=== PATIENT | female | born 1990 | race Caucasian/White ===

== ENCOUNTER → 2018-04-06 15:42 | Outpatient (CLI) | payer OTHER, SELFPAY ==
[2018-04-06 17:06] LABS: HCG Quantitative /Beta subunit < 2.39 mIU/mL
== END ==
PROVIDERS: Visit Provider Specialist
DX: N92.6 Irregular menstruation, unspecified (principal)
CPT/HCPCS: 36415; 84702

== ENCOUNTER → 2019-03-06 12:42 | Outpatient (CLI) | payer OTHER, SELFPAY | PROVIDERS: PCP Family Medicine; Visit Provider Family Medicine | DX: N90.89 Other specified noninflammatory disorders of vulva and perineum (principal) | CPT/HCPCS: 87255 ==

== ENCOUNTER → 2019-11-30 15:56 | Outpatient (CLI) | payer OTHER, SELFPAY ==
[2019-11-30 16:29] LABS: Add Manual Diff / Slide Review NO; Basophils Absolute Auto 100 /uL (0-100); Basophils Percent Auto 0.9 % (0-2); Eosinophils Absolute Auto 300 /uL (0-450); Eosinophils Percent Auto 3.4 % (2-4); Hemoglobin 13.8 g/dL (12.0-16.0); Lymphocytes Absolute Auto 2900 /uL (1100-4500); Lymphocytes Percent Auto 37.7 % (25-40); Mean Corpuscular HGB Conc 33.8 % (30-36); Mean Corpuscular Hemoglobin 31.1 PG (26-34); Mean Corpuscular Volume 92.1 fL (80-100); Monocytes Absolute Auto 600 /uL (0-900); Monocytes Percent Auto 7.3 % (3-14); Neutrophils Absolute Auto 3800 /uL (1500-7000); Neutrophils Percent Auto 50.7 % (50-75); Platelet Count 244 X10^3/uL (150-400); Red Blood Cell Count 4.45 X10^6/uL (4.0-5.2); Red Cell Distribution Width 12.8 % (11.6-14.8); White Blood Cell Count 7.6 X10^3/uL (4.5-11.0)
[2019-11-30 16:43] LABS: HEMOLYSIS < 15 (0-50); Iron 95 ug/dL (37-170)
[2019-11-30 16:44] LABS: Alanine Aminotransferase 25 IU/L (<35); Albumin 4.6 g/dL (3.5-5.0); Albumin Globulin Ratio 1.5 (1.0-2.8); Alkaline Phosphatase 46 U/L (38-126); Aspartate Aminotransferase 34 IU/L (14-36); BUN Creatinine Ratio 20.5 (6-22); Bilirubin Total 0.5 mg/dL (0.2-1.3); Blood Urea Nitrogen 16 mg/dL (7-17); Calcium 9.8 mg/dL (8.4-10.2); Carbon Dioxide 28 mmol/L (22-32); Chloride 104 mmol/L (98-107); Estimated Glomerular Filt Rate > 60.0 mL/min (>60); Glucose 91 mg/dL (70-100); HEMOLYSIS < 15 (0-50); Potassium 5.2 mmol/L (3.4-5.1); Sodium 140 mmol/L (137-145); Total Protein 7.6 g/dL (6.3-8.2)
[2019-11-30 16:54] LABS: Percent Iron Saturation 29 % (15-50); Total Iron Binding Capacity 331 ug/dL (265-497); Transferrin 273 mg/dL (206-381)
[2019-11-30 17:15] LABS: TSH w/ Reflex to FT4 2.12 uIU/mL (0.47-4.68)
[2019-11-30 17:20] LABS: Ferritin 25 ng/mL (6-137)
== END ==
PROVIDERS: PCP Family Medicine; Referring Provider Family Medicine; Visit Provider Family Medicine
DX: N92.0 Excessive and frequent menstruation with regular cycle (principal); D50.9 Iron deficiency anemia, unspecified
CPT/HCPCS: 36415; 80053; 82728; 83540; 83550; 84443; 85025

== ENCOUNTER → 2020-08-22 10:50 | Outpatient (CLI) | payer OTHER, SELFPAY ==
[2020-08-22 13:00] LABS: TSH w/ Reflex to FT4 1.34 uIU/mL (0.47-4.68)
== END ==
PROVIDERS: PCP Family Medicine; Referring Provider Family Medicine; Visit Provider Family Medicine
DX: N97.9 Female infertility, unspecified (principal)
CPT/HCPCS: 36415; 84443

== ENCOUNTER → 2020-09-19 16:15 | Outpatient (CLI) | payer OTHER, SELFPAY | PROVIDERS: PCP Family Medicine; Referring Provider Obstetrics & Gynecology; Visit Provider Obstetrics & Gynecology | DX: Z31.69 Encounter for other general counseling and advice on procreation (principal) | CPT/HCPCS: 36415; 86762; 86777 ==

== ENCOUNTER → 2021-05-04 14:58 | Outpatient (CLI) | payer OTHER, SELFPAY ==
--- NOTE | 2021-05-04 14:59 | DI.US.S_ITS ---
PROCEDURE: US PELVIC COMPLETE INDICATIONS: Abnormal and heavy vaginal bleeding TECHNIQUE: Real-time scanning was performed of the pelvic organs, with image documentation. Additional endovaginal scanning was necessary due to incomplete visualization of the adnexal and endometrial structures by transabdominal scanning. COMPARISON: None. FINDINGS: Uterus: Uterus is anteverted and normal in size at 10.0 x 3.7 x 5.4 cm. The myometrium is homogeneous. The endometrium measures 11.4 mm combined thickness Ovaries: The right ovary measures 2.8 x 1.6 x 1.8 cm. The left ovary measures 3.5 x 2.2 x 2.1 cm. The ovaries have a normal sonographic appearance. Less than 12 follicles can be seen in each ovary. No adnexal masses are seen. There is a dominant left ovarian follicle measuring 2.1 cm in maximum diameter. Other: No pathologic free abdominal or pelvic fluid. IMPRESSION: Unremarkable pelvic ultrasound. We strive to produce accurate, complete, and clear reports of imaging services. To assist us in improving patient care, this report was composed using standard report templates and voice recognition software. Therefore, it may contain abnormal punctuation, insertions and/or omissions. Occasional wrong-word or sound-alike substitutions may occur. Though we review the report and make efforts to correct it, we do recommend that the report be read carefully in proper context to recognize any text inaccuracies. Dictated by: Farhan Nash M.D. on 05/04/2021 at 16:10 Approved by: Farhan Nash M.D. on 05/04/2021 at 16:14
== END ==
PROVIDERS: PCP Family Medicine; Referring Provider Obstetrics & Gynecology; Visit Provider Obstetrics & Gynecology
DX: N92.0 Excessive and frequent menstruation with regular cycle (principal); N93.9 Abnormal uterine and vaginal bleeding, unspecified
CPT/HCPCS: 76830; 76856

== ENCOUNTER → 2021-11-27 13:38 | Outpatient (CLI) | payer OTHER, SELFPAY ==
[2021-11-27 14:57] LABS: Semen 30 min. Liquification? Yes
[2021-11-27 14:59] LABS: Final Volume 0.5 mL; Initial Volume 4 mL
== END ==
PROVIDERS: PCP Family Medicine; Referring Provider Obstetrics & Gynecology; Visit Provider Obstetrics & Gynecology
DX: Z31.9 Encounter for procreative management, unspecified (principal)
CPT/HCPCS: 58323

== ENCOUNTER → 2021-12-25 13:27 | Outpatient (CLI) | payer OTHER, SELFPAY ==
[2021-12-25 14:01] LABS: Semen 30 min. Liquification? Yes
[2021-12-25 14:50] LABS: Final Volume 0.5 mL
== END ==
PROVIDERS: PCP Family Medicine; Referring Provider Obstetrics & Gynecology; Visit Provider Obstetrics & Gynecology
DX: N97.9 Female infertility, unspecified (principal)
CPT/HCPCS: 58323

== ENCOUNTER → 2022-01-20 13:18 | Outpatient (CLI) | payer OTHER, SELFPAY ==
[2022-01-20 15:00] LABS: Final Volume 0.5 mL; Initial Volume 3.5 mL; Semen 30 min. Liquification? Yes
== END ==
PROVIDERS: PCP Family Medicine; Referring Provider Obstetrics & Gynecology; Visit Provider Obstetrics & Gynecology
DX: Z34.81 Encounter for supervision of other normal pregnancy, first trimester (principal); N97.8 Female infertility of other origin
CPT/HCPCS: 58323

== ENCOUNTER → 2022-02-25 12:50 | Outpatient (CLI) | payer OTHER, SELFPAY ==
--- NOTE | 2022-02-25 12:51 | DI.RAD.S_ITS ---
PROCEDURE: HL HYSTEROSAPINGOGRAPHY INDICATIONS: Female infertility COMPARISON: None. FINDINGS: Hysterosalpingogram was performed in conjunction with gynecology. The catheter was placed by the burn out tender lace who also injected contrast into the endometrial canal. Uterus: The uterine cavity appears normal in size and morphology, without synechiae or masses. Fallopian tubes: Both fallopian tubes fill with contrast, and appear normal in caliber and morphology. There is ready dispersion of contrast into the peritoneal cavity. IMPRESSION: Negative hysterosalpingogram. Please see separate gynecology report for further details. Dictated by: Jones Chavez M.D. on 02/25/2022 at 17:48 Approved by: Jones Chavez M.D. on 02/25/2022 at 17:50
--- NOTE | 2022-02-25 19:37 | PM.PROC.1 ---
Procedures Date/Time Date of procedure: 02/25/22 Time of procedure: 13:20 General Procedure description: Hysterosalpingogram Informed consent was obtained. The patient was placed on the fluoroscopy table with pelvis on an overturned bedpan. A bivalve speculum was placed in the vaginal. The cervix was cleaned x 3 with Betadine. A single-tooth tenaculum was placed on the anterior lip of the cervix. The HSG catheter passed easily into the the uterus. The bulb was inflated with 3cc of air. The bivalve speculum was removed from the vagina. 20cc of Isoview 300 were injected thru the HSG catheter under direct fluoroscopic observation. The contours of the uterus were normal. There was spill from both tubes. The HSG catheter was deflated and removed from the uterus. The patient tolerated the procedure well. Complications: none
== END ==
PROVIDERS: PCP Family Medicine; Referring Provider Obstetrics & Gynecology; Visit Provider Obstetrics & Gynecology
DX: Z31.9 Encounter for procreative management, unspecified (principal); N97.9 Female infertility, unspecified
CPT/HCPCS: 58340; 74740

== ENCOUNTER → 2022-03-22 15:13 | Outpatient (CLI) | payer OTHER, SELFPAY ==
[2022-03-22 16:57] LABS: HCG Quantitative /Beta subunit 41.4 mIU/mL
== END ==
PROVIDERS: PCP Family Medicine; Referring Provider Obstetrics & Gynecology; Visit Provider Obstetrics & Gynecology
DX: Z34.90 Encounter for supervision of normal pregnancy, unspecified, unspecified trimester (principal)
CPT/HCPCS: 36415; 84702

== ENCOUNTER → 2022-03-24 15:17 | Outpatient (CLI) | payer OTHER, SELFPAY ==
[2022-03-24 16:11] LABS: HCG Quantitative /Beta subunit 40.1 mIU/mL
== END ==
PROVIDERS: PCP Family Medicine; Referring Provider Obstetrics & Gynecology; Visit Provider Obstetrics & Gynecology
DX: Z34.90 Encounter for supervision of normal pregnancy, unspecified, unspecified trimester (principal)
CPT/HCPCS: 36415; 84702

== ENCOUNTER → 2022-03-26 15:17 | Outpatient (CLI) | payer OTHER, SELFPAY ==
[2022-03-26 16:39] LABS: HCG Quantitative /Beta subunit 37.6 mIU/mL
== END ==
PROVIDERS: PCP Family Medicine; Referring Provider Obstetrics & Gynecology; Visit Provider Obstetrics & Gynecology
DX: Z34.90 Encounter for supervision of normal pregnancy, unspecified, unspecified trimester (principal)
CPT/HCPCS: 36415; 84702

== ENCOUNTER → 2023-03-02 15:35 | Outpatient (CLI) | payer OTHER, SELFPAY ==
[2023-03-02 16:31] LABS: Add Manual Diff / Slide Review NO; Basophils Absolute Auto 0 /uL (0-100); Basophils Percent Auto 0.5 % (0-2); Eosinophils Absolute Auto 100 /uL (0-450); Eosinophils Percent Auto 1.8 % (2-4); Hematocrit 38.8 % (36-46); Hemoglobin 13.3 g/dL (12.0-16.0); Lymphocytes Absolute Auto 2300 /uL (1100-4500); Lymphocytes Percent Auto 30.6 % (25-40); Mean Corpuscular HGB Conc 34.2 % (30-36); Mean Corpuscular Hemoglobin 30.6 PG (26-34); Mean Corpuscular Volume 89.5 fL (80-100); Monocytes Absolute Auto 500 /uL (0-900); Monocytes Percent Auto 6.3 % (3-14); Neutrophils Absolute Auto 4500 /uL (1500-7000); Neutrophils Percent Auto 60.8 % (50-75); Platelet Count 300 X10^3/uL (150-400); Red Blood Cell Count 4.33 X10^6/uL (4.0-5.2); Red Cell Distribution Width 12.7 % (11.6-14.8); White Blood Cell Count 7.5 X10^3/uL (4.5-11.0)
[2023-03-03 05:17] LABS: RPR Screen Non Reactive (Non Reactive)
[2023-03-03 08:36] LABS: Varicella IgG Antibody 836 index (Immune >165)
[2023-03-03 20:13] LABS: HIV 1 & 2 Ab/Ag 4th Gen Combo NEGATIVE (NEGATIVE); Hepatitis B Surface Antigen NEGATIVE s/c (NEGATIVE); Rubella Antibody IgG 96.5 IU/mL (>15)
[2023-03-04 18:17] LABS: Hep C Virus Ab w/Reflex Quant NEGATIVE s/c (NEGATIVE)
== END ==
PROVIDERS: PCP Obstetrics & Gynecology; Referring Provider Student in an Organized Health Care Education/Training Program; Visit Provider Student in an Organized Health Care Education/Training Program
DX: O09.819 Supervision of pregnancy resulting from assisted reproductive technology, unspecified trimester (principal)
CPT/HCPCS: 36415; 80055; 86787; 86803; 86850; 86900; 86901; 87086; 87389

== ENCOUNTER → 2023-04-19 16:21 | Outpatient (CLI) | payer OTHER, SELFPAY ==
[2023-04-22 21:54] LABS: AFP Value 23.9 ng/mL (.); Gest Age on Col Date 18.6 weeks (.); Insulin Dep Diabetes No (.); OSBR Risk 1IN 10000 (.); Results Report (.); Test Results *Screen Negative* (.)
== END ==
PROVIDERS: PCP Family Medicine; Referring Provider Obstetrics & Gynecology; Visit Provider Obstetrics & Gynecology
DX: Z34.02 Encounter for supervision of normal first pregnancy, second trimester (principal); Z3A.16 16 weeks gestation of pregnancy
CPT/HCPCS: 36415; 82105

== ENCOUNTER → 2023-05-12 16:14 | Outpatient (CLI) | payer OTHER, SELFPAY ==
--- NOTE | 2023-05-12 16:16 | DI.US.S_ITS ---
PROCEDURE: US OB >= 14 WEEKS FETUS INDICATIONS: 20 Week Anatomy Scan OUTSIDE/PRIOR DATING DATA: Last menstrual period (LMP): IVF. LMP-based estimated date of delivery (NICOLE): 09/28/2023. First dating scan (date and location): 02/22/2023. Estimated date of delivery (NICOLE) from first dating scan: 09/27/2023. The calculations are made using the clinical NICOLE of 09/28/2023. TECHNIQUE: Real-time scanning was performed of the fetus, with image documentation and biometric measurements. Endovaginal scanning: Not performed. COMPARISON: [facility], US, OB <= 14 WEEKS FETUS, 02/22/2023, 15:03. FINDINGS: General: A single living intrauterine gestation is present. Presentation: Vertex. Placenta: Placental position is anterior, without previa. Amniotic fluid index: 12.6 cm, normal range is 5-24 cm. Single deepest vertical pocket is 4.7 cm. heart rate: 150 beats per minute. Maternal cervical canal: 3.5 cm long. Normal lower limit is 2.5 cm. biometrics: Biparietal diameter: 4.9 cm, 20 weeks 5 days Head circumference: 17.8 cm, 20 weeks 2 days Abdominal circumference: 16.7 cm, 21 weeks 5 days Femur length: 3.3 cm, 20 weeks 2 days Clinically estimated gestational age: 20 weeks 1 day Composite gestational age from present scan: 20 weeks 5 days Estimated weight and percentile: 389 g, 87th percentile Anatomic survey: Neuro: Ventricles are non-dilated at less than 10 mm. Cisterna magna is normal at 3-11 mm. Cerebellum is normal in size and morphology. Nuchal skin fold: Normal at less than 6 mm between 14-21 weeks gestational age. Face: Nose and lips, facial profile are normal. Spine: No evidence for spina bifida. Heart: 4-chambered heart is present, with normal ventricular outflow tracts. Diaphragm: Diaphragm is intact. Stomach: Left-sided stomach is present. Kidneys: No hydronephrosis. Normal is less than 5 mm in 2nd trimester, less than 7 mm in 3rd trimester. Cord: 3-vessel cord has orthotopic insertion. Bladder: Normal in size. Extremities: All 4 extremities identified. IMPRESSION: 1. Chowdhury living intrauterine at 20 weeks 5 days based on today's ultrasound. This is concordant with the prior dating. Fetus is in the 87th percentile for weight. 2. Normal placenta and amniotic fluid. 3. Normal and complete anatomic survey. We strive to produce accurate, complete, and clear reports of imaging services. To assist us in improving patient care, this report was composed using standard report templates and voice recognition software. Therefore, it may contain abnormal punctuation, insertions and/or omissions. Occasional wrong-word or sound-alike substitutions may occur. Though we review the report and make efforts to correct it, we do recommend that the report be read carefully in proper context to recognize any text inaccuracies. Dictated by: Tuan Warner M.D. on 05/13/2023 at 8:13 Approved by: Tuan Warner M.D. on 05/13/2023 at 8:19
== END ==
LOC: US 16:15
PROVIDERS: PCP Family Medicine; Referring Provider Obstetrics & Gynecology; Visit Provider Obstetrics & Gynecology
DX: Z34.02 Encounter for supervision of normal first pregnancy, second trimester (principal); Z3A.20 20 weeks gestation of pregnancy
CPT/HCPCS: 76811

== ENCOUNTER → 2023-06-11 09:56 | Outpatient (CLI) | payer OTHER, SELFPAY ==
[2023-06-11 11:15] LABS: Hematocrit 35.8 % (36-46); Hemoglobin 12.2 g/dL (12.0-16.0)
[2023-06-11 11:35] LABS: GTT (PREG) 1 Hour PP 50gm Dose 96 mg/dL (76-139)
== END ==
PROVIDERS: PCP Family Medicine; Referring Provider Obstetrics & Gynecology; Visit Provider Obstetrics & Gynecology
DX: Z34.02 Encounter for supervision of normal first pregnancy, second trimester (principal); Z3A.26 26 weeks gestation of pregnancy
CPT/HCPCS: 82950; 85014; 85018

== ENCOUNTER → 2023-09-07 15:36 | Outpatient (CLI) | payer OTHER, SELFPAY ==
[2023-09-08 14:33] LABS: Strep Grp B PCR NEG for Grp B Strep
== END ==
PROVIDERS: PCP Family Medicine; Visit Provider Specialist
DX: Z34.03 Encounter for supervision of normal first pregnancy, third trimester (principal); Z3A.37 37 weeks gestation of pregnancy
CPT/HCPCS: 87653

== ENCOUNTER 2023-09-20 18:01 | Inpatient (IN) | payer OTHER, SELFPAY ==
[2023-09-20 19:23] VITALS: BP 92/66
[2023-09-20 19:28] LABS: Add Manual Diff / Slide Review NO; Basophils Absolute Auto 0 /uL (0-100); Basophils Percent Auto 0.4 % (0-2); Eosinophils Absolute Auto 100 /uL (0-450); Eosinophils Percent Auto 1.1 % (2-4); Hematocrit 35.4 % (36-46); Hemoglobin 12.3 g/dL (12.0-16.0); Lymphocytes Absolute Auto 2200 /uL (1100-4500); Mean Corpuscular HGB Conc 34.7 % (30-36); Mean Corpuscular Hemoglobin 32.1 PG (26-34); Mean Corpuscular Volume 92.5 fL (80-100); Monocytes Absolute Auto 600 /uL (0-900); Monocytes Percent Auto 6.8 % (3-14); Neutrophils Absolute Auto 5900 /uL (1500-7000); Neutrophils Percent Auto 66.7 % (50-75); Platelet Count 208 X10^3/uL (150-400); Red Blood Cell Count 3.83 X10^6/uL (4.0-5.2); Red Cell Distribution Width 13.5 % (11.6-14.8); White Blood Cell Count 8.8 X10^3/uL (4.5-11.0)
[2023-09-20] MEDS: miSOPROStoL 25 MCG TABLET 50 MCG PO (22:50)
[2023-09-21] MEDS: miSOPROStoL 25 MCG TABLET 50 MCG PO (05:00)
--- NOTE | 2023-09-21 09:07 | PM.OBHP.1 ---
OB HPI Date/Time Date of admission: 09/20/23 Date Patient Seen: 09/21/23 Time Patient Seen: 07:45 History of Present Condition Chief complaint: INDUCTION : 2 Para: 0 Estimated Date of Delivery: 09/28/23 Estimated Gestational Age (weeks): 39 Narrative: Camille Main is a 33 year old female Indications Indication for induction OB: other (IVF ) History of Present care: good care, initiated at week # (8), number of visits (11) and pounds weight gain (24) Dating criteria: LMP confirmed by 1st trimester US Ultrasounds: normal mid trimester US Obstetrical complications: none Medical complications: none Preadmission Labs Blood type: A (+) positive -: Antibody screen: negative, GBS status: negative, HBsAG: negative, HIV: negative and RPR/VDLR: negative -: Chlamydia screen: not detected and Gonorrhea screen: not detected -: Rubella: immune and Varicella: immune HCAB: negative Cell-free DNA: Normal female, normal AFP 1 hr GTT: 96 Evaluation Evaluation Baseline heart rate: 150 Variability: Moderate (11-25) monitor accelerations: Present Monitor Decelerations: Absent Contraction Frequency (minutes): 4 Uterine Contraction Intensity: Mild Category of Tracing: Reactive Status: Category l Dilation (cm): 1 Effacement (%): 60 station: -1 Position of cervix: anterior Consistency: soft [facility] Medical History (Updated 07/27/23 @ 21:59 by Jud Hansen MD) Genital herpes Iron deficiency anemia Foot pain (~2016) Chicken pox Ovarian cyst (~2009) Human papilloma virus (~2014) Heavy menstrual period H/O abnormal cervical Papanicolaou smear Anemia (~2009) Surgical History (Updated 02/16/23 @ 13:09 by Jennifer Montoya RN) H/O colposcopy with cervical biopsy Family History (Updated 02/16/23 @ 13:15 by Jennifer Montoya RN) Father Skin cancer Melanoma Mother Hyperlipidemia Hypertension Grandfather Mental health problem Depression Grandmother Diabetes mellitus Colon cancer Grandfather No problems noted. 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) current occupational exposures/hazards: No special renetta needs: No travel history: recent and over 6 months ago seatbelt use: always water heater temp set < 120 deg: No (It's on the to-do list) working smoke detector in home: Yes fire extinguisher in home: Yes carbon monox detector in home: Yes firearms in home: No do you feel safe at home: Yes Smoking Status: Never smoker second hand exposure: No alcohol intake: former (~5/week when not ) substance use type: does not use during the past year weight has: increased > 10 lbs (with IVF treatment preparation) well-balanced diet: about half the time daily servings fruits/ve-4 caffeine: Yes (aware of 200mg limit) Type(s) of exercise: running frequency: 5-6 times per week Meds Home Medications and Allergies Home Medications Medication Instructions Recorded Confirmed Type prenat.vits,alee,odq-vouf-neyzh 1 tab PO DAILY 08/22/20 09/20/23 History valacyclovir 1 gram tablet See Rx Instructions .Route 04/07/21 09/20/23 Rx .COMPLEX #30 tabs ascorbic acid (vitamin C) 1,000 mg 1 g PO DAILY 02/16/23 09/20/23 History capsule cholecalciferol (vitamin D3) 250 250 mcg PO DAILY 02/16/23 09/20/23 History mcg (10,000 unit) capsule liver extract tab PO 02/16/23 09/14/23 History Allergies Allergy/AdvReac Type Severity Reaction Status Date / Time No Known Drug Allergies Allergy Verified 09/21/23 07:26 Review of Systems Review of Systems Narrative: Patient denies headaches, scotomata, epigastric pain. Good movement. No leakage of fluid. No vaginal bleeding. OB Exam Vital signs Blood Pressure: 98/64 Pulse Rate: 82 Temperature: 98.1 F Narrative Exam Narrative: HEENT exam within normal limits. Lungs are clear to auscultation percussion. Heart is regular rate and rhythm no S3-S4 murmurs. Abdomen is gravid, nontender. Fetus is vertex. Extremities without edema and nontender Objective Labs 09/20/23 18:40 Labs: Laboratory Results - last 24 hr 09/20/23 18:40 WBC 8.8 RBC 3.83 L Hgb 12.3 Hct 35.4 L MCV 92.5 MCH 32.1 MCHC 34.7 RDW 13.5 Plt Count 208 Neut % (Auto) 66.7 Lymph % (Auto) 25.0 [place] % (Auto) 6.8 Eos % (Auto) 1.1 L Baso % (Auto) 0.4 Neut # (Auto) 5900 Lymph # (Auto) 2200 [place] # (Auto) 600 Eos # (Auto) 100 Baso # (Auto) 0 Blood Type A Positive Antibody Screen Negative Assessment and Plan Assessment and Plan Assessment and Plan narrative: 39 week gestation, IVF admitted for induction at 39 weeks. Possibly LGA. Patient received Cytotec overnight and will begin Pitocin. Time-Based Coding :: [TOTAL MINUTES] spent with patient and on the chart (including review of chart, obtaining history, exam, reviewing outside data, placing orders, documenting exam and treatment plan, and counseling patient) on [DATE].
[2023-09-21] MEDS: LACTATED RINGERS 1,000 ML 100 ML IV (09:36)
[2023-09-21] MEDS: OXYTOCIN PREMIX 30 UNIT/500 ML PLAST..BAG IV (09:37)
[2023-09-21 10:35] VITALS: BP 98/64; PULSE 82; TEMP 36.7
--- NOTE | 2023-09-21 11:49 | PM.OBPNLAB ---
Date/Time Date Patient Seen: 09/21/23 Time Patient Seen: 11:30 Pain Control Pain control: tolerating well Pelvic Exam Effacement (%): 60 station: -1 Amniotic membrane status: Ruptured (Clear fluid, spontaneous) Contractions Contractions on admission: regular Monitor mode: External Pitocin rate (mU/min): 2 Contraction frequency (min): 3 Contraction duration (min): 1 Contraction pattern: Regular Contraction intensity: Moderate Status status: Category l Heart Rate Baseline: 130 Monitor Accelerations: Present Monitor Decelerations: Absent Monitor Variability: Moderate Assessment and Plan Assessment: induction ongoing Plan: continuous present management
--- NOTE | 2023-09-21 13:20 | PM.OBPNLAB ---
Date/Time Date Patient Seen: 09/21/23 Time Patient Seen: 13:20 Pain Control Pain control: other (Patient is going to try nitrous oxide) Pelvic Exam Dilation (cm): 5 Effacement (%): 90 station: -2 Amniotic membrane status: Ruptured (Clear fluid, spontaneous) Contractions Monitor mode: External Pitocin rate (mU/min): 0 Contraction frequency (min): 3 Contraction duration (min): 1 Contraction pattern: Regular Contraction intensity: Strong/Firm Status status: Category l Heart Rate Baseline: 130 Monitor Accelerations: Present Monitor Decelerations: Absent Monitor Variability: Moderate Assessment and Plan Assessment: active labor Plan: continuous present management Comments: Ultrasound of position occiput anterior
[2023-09-21] MEDS: LIDOCAINE 1% 20 ML INJ (14:30)
--- NOTE | 2023-09-21 14:49 | PM.OBPRVD ---
Events: Labor Induction (IVF ) Labor & Delivery Delivery date: 09/21/23 Intrapartal Events: None Cervical ripening method: per misoprostal protocol Induction method: per pitocin protocol Delivery monitor: external FHT and external uterine Route of delivery: L&D Laceration Description: Vaginal - 2nd Degree, Labial (First-degree left labial) and Superficial (Periurethral) Delivery repair: vicryl (3-0) Estimated blood loss (mL): 50 Narrative: Patient arrived on Labor and delivery for induction for IVF at 39 weeks. The patient received 3 doses of oral prostaglandins. She was started on very low-dose Pitocin at 1 and then 2 sera units per minute but then was shut off when her contractions increased in frequency after spontaneous rupture membranes with clear fluid. heart tones category 1 to category 2 throughout labor. The patient did use nitrous oxide for a short period of time for pain control. With the 2nd stage of labor there was decelerations to the 90s with several contractions but the patient delivered quickly so did not need any instrumentation. Patient had a spontaneous vaginal delivery and the was placed on maternal abdomen. After the cord stopped pulsating the cord was clamped, cut, and cord bloods obtained. The placenta delivered spontaneously, intact, with 3 vessels. The patient was found to have no cervical tears a second-degree midline vaginal tear that extended to a first-degree left labial tear that was repaired with 3-0 Vicryl in the usual 2 layer fashion. Patient had spontaneous rupture membranes for total of 3 hours and 8 minutes. Stage I of labor was 2 hours 58 minutes. Stage II labor 10 minutes. Stage III labor 8 minutes. Both infant and mother doing well. Baby 1: Infant gender: Female Presentation: vertex Position: Right Occiput Anterior Placenta delivery description: Spontaneous Cord Vessel Description: 3 Vessels score (1 min): 8 score (5 min): 9 weight: 7 lb 8 oz Plan for aftercare: Routine care
[2023-09-21] MEDS: ACETAMINOPHEN 325 MG TABLET 650 MG PO ×2 (16:25→22:33)
[2023-09-21] MEDS: IBUPROFEN 600 MG TABLET PO ×2 (16:25→22:33)
[2023-09-22] MEDS: IBUPROFEN 600 MG TABLET PO ×2 (05:05→11:28)
[2023-09-22] MEDS: ACETAMINOPHEN 325 MG TABLET 650 MG PO ×2 (05:05→11:28)
[2023-09-22 07:03] LABS: Hematocrit 34.9 % (36-46); Hemoglobin 11.9 g/dL (12.0-16.0)
--- NOTE | 2023-09-22 08:09 | P.DS_ITS ---
Discharge Providers Provider Date of admission: 09/20/23 18:01 Discharge Date: 09/22/23 Primary care physician: Lelia Webb MD Consults: 09/21/23 08:53 Consult to Anesthesiology Urgent Comment: Consulting Provider: Anesthesiologist Reason for consultation: Epidural 09/22/23 14:47 Consult to Baggage Agent Supervisor Routine Comment: Discharge provider: Lisandra Priest MD Summary Hospital Course Date Patient Seen: 09/22/23 Time Patient Seen: 08:09 Diagnoses: Spontaneous vaginal delivery Hospital Course: Patient was admitted for induction for 39 week gestation IVF . She received 3 doses of Cytotec. She had a small dose of Pitocin started then had spontaneous rupture membranes and onset of labor so the Pitocin turned off. She progressed quickly to complete and pushing. She delivered spontaneously a viable female . She had a second-degree vaginal tear and a first-degree labial tear repaired with 3-0 Vicryl suture. Patient is doing well post . She is breast-feeding without difficulty. Normal lochia. No headaches or scotomata. She is urinating and ambulating well. Peripartum Data Delivery Method: Natural Vaginal Laceration Description: Vaginal - 2nd Degree and Labial (Left first-degree) Procedures: Prostin followed by Pitocin induction. Spontaneous vaginal delivery. complications: none [place] 1: Gender: Female Disposition of : home Discharge Diagnosis (1) Vaginal delivery: Status: Acute (2) conceived through in vitro fertilization: Status: Acute Status at Discharge Cognitive/behavioral status at discharge: oriented Functional status at discharge: independent ambulation Overall status at discharge: patient is progressing back to baseline Time Spent with Patient Time attestation: Total time spent providing and/or coordinating discharge services: Time spent: Less than 30 minutes Objective Labs 09/22/23 06:55 Labs: Laboratory Results - last 24 hr 09/22/23 06:55 Hgb 11.9 L Hct 34.9 L Exam Vital Signs (past 8 hours): Blood pressure 117/76, pulse 63, temperature 98.5? Narrative Exam Narrative: Abdomen is soft, nontender. Uterus is firm, at U, nontender. Repair intact. Mild lochia. Extremities without edema and nontender. Discharge Plan Discharge Plan Patient Disposition: Home Discharge orders & Medications Prescriptions: Continued prenat.vits,alee,nib-fswy-wegii Tablet 1 tab PO DAILY cholecalciferol (vitamin D3) 250 mcg (10,000 unit) capsule 250 mcg PO DAILY ascorbic acid (vitamin C) 1,000 mg capsule 1 g PO DAILY liver extract Tablet PO Discontinued valacyclovir 1 gram tablet See Rx Instructions .ROUTE .COMPLEX Qty: 30 4RF Dose Instruction: TAKE 1 TABLET BY MOUTH TWICE DAILY FOR 1 DAY Rx Instructions: TAKE 1 TABLET BY MOUTH TWICE DAILY FOR 1 DAY Follow up/Referrals: Jud Hansen MD [Physician] - 6 Weeks (6 week Appt w/ Dr. Hansen: Tuesday, Nov.01 @ 10:30am) Diet/Activity/Treatments Activity: Nothing in vagina for 6 weeks Skin/Wound/Dressing Care Report to your healthcare provider any signs of infection, such as:: chills, fever and increased pain Visit Report/Discharge Packet Instructions: DI for Labor and Delivery, Vaginal Stand Alone Forms: Discharge: Care, Patient Portal/API, Stroke Signs & Symptoms Discharge Data Primary Care Provider: Lelia Webb
[2023-09-22 08:27] VITALS: BP 113/77; PULSE 88; RESP 18; TEMP 37.1
[2023-09-22] MEDS: PRENATAL VIT,CALC/IRON/FOLIC 1 TABLET 1 TAB PO (08:48)
== END 2023-09-22 12:57 | disposition home or self-care (01) | DRG 807 ==
PROVIDERS: Admitting Provider Specialist; PCP Family Medicine; Referring Provider Specialist; Visit Provider Specialist
DX: O98.32 Other infections with a predominantly sexual mode of transmission complicating childbirth (principal); O76 Abnormality in fetal heart rate and rhythm complicating labor and delivery; A60.9 Anogenital herpesviral infection, unspecified; O70.0 First degree perineal laceration during delivery; O70.1 Second degree perineal laceration during delivery; Z3A.39 39 weeks gestation of pregnancy; Z37.0 Single live birth
CPT/HCPCS: 36415; 59050; 59200; 59400; 59409; 76815; 85014; 85018; 85025; 86850; 86900; 86901; G0379; J2590